=== PATIENT | female | born 2000 | race Caucasian/White ===

== ENCOUNTER 2020-10-27 05:36 | Inpatient (IN) | payer OTHER ==
[~2020-10-27] VITALS: Ht 170.2 cm; Wt 96.2 kg
[~2020-10-27 05:36] MED LIST: COLACE 100MG C100 MG PO; IBUPROFEN600 MG PO; LORTAB 5-325 M1 EACH PO; PRENATABS FA T1 EACH PO
[2020-10-27] MEDS ORDERED: IBUPROFEN600 MG PO (08:19)
[2020-10-27] MEDS ORDERED: DOCUSATE SODIU100 MG PO (08:19)
[2020-10-27] MEDS ORDERED: HYDROCODON-ACE1 EAC4 PO (08:19)
[2020-10-28 06:11] LABS: HEMOGLOBIN 10.9 gm/dl (12.3-15.3)
== END 2020-10-28 15:52 | disposition home or self-care (01) | DRG 788 ==
LOC: OB 05:36
PROVIDERS: ADMIT Obstetrics & Gynecology
PROC: 10D00Z1 Extraction of Products of Conception, Low, Open Approach (ICD-10-PCS; principal; 2020-10-27 10:25)
PROC: 3E0234Z Introduction of Serum, Toxoid and Vaccine into Muscle, Percutaneous Approach (ICD-10-PCS; 2020-10-28)
DX: O34.211 Maternal care for low transverse scar from previous cesarean delivery (principal); N85.8 Other specified noninflammatory disorders of uterus; Z3A.39 39 weeks gestation of pregnancy; Z37.0 Single live birth; O69.89X0 Labor and delivery complicated by other cord complications, not applicable or unspecified; Z23 Encounter for immunization
CPT/HCPCS: 36415; 81001; 82800; 85014; 85018; 85025; 90471; 90715; C9113; J1580; J1885; J2274; J2300; J2405; J2590; J3010; J7120